=== PATIENT | male | born 1990 | race Caucasian/White ===

== ENCOUNTER → 2021-03-30 | Outpatient (CLI) | payer BC ==
[~2021-03-30] MED LIST: CARAFATE PO; LEVOFLOXACIN500 MG PO; MOTRIN600 MG PO; NEIGHBOR PO; PEPCID 20MG TAB20 MG PO
== END ==
LOC: AMSURD 14:01
DX: F41.0 Panic disorder [episodic paroxysmal anxiety] (principal); F41.1 Generalized anxiety disorder

== ENCOUNTER 2021-11-08 06:46 | Emergency (ER) | payer BC ==
[~2021-11-08] VITALS: Ht 180.3 cm; Wt 120.5 kg
[~2021-11-08 06:46] MED LIST changes: +VALIUM 5MG T5 MG/TAB PO
[2021-11-08] MEDS ORDERED: NORCO 325 MG-51 TA1 PO (08:52)
[2021-11-08 08:54] VITALS: BP 140/96
== END 2021-11-08 08:54 | disposition home or self-care (01) ==
LOC: ED 06:46
DX: S52.122A Displaced fracture of head of left radius, initial encounter for closed fracture (principal); Z28.310 Unvaccinated for COVID-19; W10.2XXA Fall (on)(from) incline, initial encounter
CPT/HCPCS: J1885